=== PATIENT | male | born 1940 | race Caucasian/White ===

== ENCOUNTER → 2021-03-16 | Outpatient (CLI) | payer OTHER ==
[~2021-03-16] MED LIST: ARTIFICIAL TEAR15 ML EYEBOTH; BREO ELLIPTA 11 EACH INH; ECOTRIN81 MG PO; ERYTHROMYCIN O3.5 GM EYEBOTH; FLOMAX0.4 MG PO; IPRAT-ALBUT 0.5-3 ML INH; MONTELUKAST SOD10 MG PO; NORVASC 5 MG TAB5 MG PO; PRAVASTATIN SOD10 MG PO; PROAIR HFA8.5 GM INH; PROTONIX40 MG PO; SENNA-DOCUSATE1 EACH PO; ZYLOPRIM 100 M100 MG PO; ZYRTEC10 MG PO
== END ==
LOC: EXRD 08:43
DX: M54.5 Low back pain (principal); M25.552 Pain in left hip; M51.36 Other intervertebral disc degeneration, lumbar region
CPT/HCPCS: 72110; 73502

== ENCOUNTER → 2021-03-30 | Outpatient (CLI) | payer OTHER | LOC: EXRD 09:53 | DX: M25.562 Pain in left knee (principal); M17.12 Unilateral primary osteoarthritis, left knee | CPT/HCPCS: 73564 ==